=== PATIENT | female | born 1955 | race Hispanic/Latino ===

== ENCOUNTER 2021-01-28 10:45 | Inpatient (IN) | payer OTHER ==
[~2021-01-28] VITALS: Ht 149.9 cm; Wt 51.6 kg
[~2021-01-28 10:45] MED LIST: AMLO5TAB4 PO; HYDR-4154 PO; METO50TA18 PO; SIMV-43 PO
[2021-01-28 11:29] LABS: BASOPHILS % (AUTO) 0.1 % (0.0-5.0); HEMATOCRIT 23.9 % (36-48); LYMPHOCYTES % (AUTO) 3.9 % (21.0-51.0); MEAN CORPUSCULAR HEMOGLOBIN 19.1 pg (27.0-33.0); MEAN CORPUSCULAR VOLUME 68.1 fL (79-99); MONOCYTES % (AUTO) 3.6 % (3.0-13.0); PLATELET COUNT (AUTO) 264 K/uL (130-400); RED BLOOD CELL COUNT(AUTO) 3.51 MIL/uL (4.00-5.50); RED CELL DISTRIBUTION WIDTH 17.2 % (11.0-15.5); WHITE BLOOD COUNT (AUTO) 13.9 K/uL (4.8-10.8)
[2021-01-28 11:41] LABS: ALBUMIN 3.2 g/dL (3.5-5.0); POTASSIUM 4.6 mmol/L (3.5-5.1); TOTAL PROTEIN, SERUM 7.1 g/dL (6.0-8.3)
[2021-01-28 11:44] LABS: CREATININE 12.5 mg/dL (0.5-1.5)
[2021-01-28 11:51] LABS: INR 1.09 (0.85-1.15); PROTHROMBIN TIME 11.8 SEC (9.6-11.6)
[2021-01-28 11:52] LABS: PARTIAL THROMBOPLASTIN TIME 24.8 SEC (26.3-35.5)
[2021-01-28 12:00] LABS: RETICULOCYTE % (AUTO) 2.85 % (0.42-2.23)
[2021-01-28] MEDS ORDERED: AMLODIPINE BESYLATE 5 MG TAB ONE (13:35)
[2021-01-28 13:39] LABS: % IRON SATURATION 1.3 % (22-44)
[2021-01-28] MEDS ORDERED: FUROSEMIDE 10 MG/ML 4ML VIAL ONE (14:20)
[2021-01-28] MEDS ORDERED: COMPOUND IV MISC 1 EACH IVSOLN MISC PRN (14:30)
[2021-01-28] MEDS ORDERED: IRON SUCROSE COMPLEX 300 MG in SODIUM CHLORIDE 0.9% 50 ML IV SCH (14:30)
[2021-01-28] MEDS ORDERED: NICARDIPINE HCL 50 MG in SODIUM CHLORIDE 0.9% 230 ML IV SCH (14:45)
[2021-01-28 15:11] LABS: APPEARANCE,URINE Cloudy (CLEAR); BILIRUBIN,URINE Negative (NEGATIVE); COLOR,URINE Yellow (YELLOW); GLUCOSE, URINE (UA) Negative (NEGATIVE); KETONES,URINE Negative (NEGATIVE); LEUKOCYTE ESTERASE ,URINE Negative (NEGATIVE); NITRATE,URINE Negative (NEGATIVE); OCCULT BLOOD,URINE Small (NEGATIVE); PROTEIN,URINE 300 mg/dL (NEGATIVE); UROBILINOGEN,URINE 0.2 mg/dL (0.2-1.0)
[2021-01-28] MEDS ORDERED: CARVEDILOL 6.25 MG TABLET PO ONE (15:13)
[2021-01-28] MEDS: Vitamin B Complex/Vit C/Folic Acid PO SCH (15:35)
[2021-01-28 15:59] LABS: AMORPHOUS SEDIMENT,UR Moderate /LPF (None Seen); BACTERIA,URINE Few /HPF (None Seen); MUCUS,URINE Moderate LPF (None Seen); SQUAMOUS EPITHELIAL CELL,UR Few /HPF (0-2)
[2021-01-28] MEDS: CARVEDILOL 6.25 MG TABLET PO SCH (21:00)
[2021-01-28 21:14] LABS: HEMATOCRIT 19.2 % (36-48)
[2021-01-28] MEDS ORDERED: PANTOPRAZOLE SODIUM 80 MG in SODIUM CHLORIDE 0.9% 100 ML IVP SCH (22:15)
[2021-01-28 22:40] VITALS: BP 142/78
[2021-01-28 23:00] VITALS: BP 143/78
[2021-01-28] MEDS ORDERED: SODIUM CHLORIDE 0.9% 250 ML IV ONE (23:32)
[2021-01-28 23:40] VITALS: BP 131/73
[2021-01-29] VITALS (23 sets, daily range): BP systolic 119–172; BP diastolic 61–92
[2021-01-29] MEDS ORDERED: PANTOPRAZOLE 40 MG/VIAL ONE (00:50)
[2021-01-29] MEDS ORDERED: SODIUM CHLORIDE 0.9% 100 ML IV ONE (00:50)
[2021-01-29] MEDS: FUROSEMIDE 10 MG/ML 4ML VIAL IV SCH ×2 (03:05→15:13)
[2021-01-29 04:48] LABS: HEMATOCRIT 25.7 % (36-48); LYMPHOCYTES % (AUTO) 6.7 % (21.0-51.0); MEAN CORPUSCULAR HEMOGLOBIN 21.6 pg (27.0-33.0); MEAN CORPUSCULAR VOLUME 72.2 fL (79-99); NEUTROPHILS % (AUTO) 84.9 % (40.0-77.0); NUCLEATED RED BLOOD CELLS 1.4 % (0.0-0.19); PLATELET COUNT (AUTO) 162 K/uL (130-400); RED BLOOD CELL COUNT(AUTO) 3.56 MIL/uL (4.00-5.50); RED CELL DISTRIBUTION WIDTH 19.9 % (11.0-15.5); WHITE BLOOD COUNT (AUTO) 7.1 K/uL (4.8-10.8)
[2021-01-29 04:59] LABS: HEMOGLOBIN A1C 4.5 % (4.0-6.0)
[2021-01-29 05:34] LABS: ALBUMIN 2.8 g/dL (3.5-5.0); BILIRUBIN,TOTAL 1.6 mg/dL (0.2-1.0); MAGNESIUM 4.5 mg/dL (1.80-2.40); POTASSIUM 4.3 mmol/L (3.5-5.1); THYROID STIMULATING HORMONE 0.53 uIU/mL (0.36-3.74); TOTAL PROTEIN, SERUM 6.1 g/dL (6.0-8.3); URIC ACID 19.8 mg/dL (2.6-7.2)
[2021-01-29 05:43] LABS: CREATININE 12.8 mg/dL (0.5-1.5)
[2021-01-29 06:04] LABS: PHOSPHORUS 17.2 mg/dL (2.5-4.9)
[2021-01-29] MEDS: AMLODIPINE BESYLATE 5 MG TAB PO SCH (07:39)
[2021-01-29] MEDS: Vitamin B Complex/Vit C/Folic Acid PO SCH (07:39)
[2021-01-29] MEDS: CARVEDILOL 6.25 MG TABLET PO SCH ×2 (07:40→20:28)
[2021-01-29] MEDS: IRON SUCROSE COMPLEX 300 MG in SODIUM CHLORIDE 0.9% 50 ML IV SCH (15:12)
[2021-01-29] MEDS ORDERED: ACETAMINOPHEN 325 MG TAB PO SCH (15:30)
[2021-01-30] VITALS (17 sets, daily range): BP systolic 123–171; BP diastolic 70–94
[2021-01-30] MEDS: FUROSEMIDE 10 MG/ML 4ML VIAL IV SCH ×2 (03:46→15:04)
[2021-01-30 04:32] LABS: MAGNESIUM 3.4 mg/dL (1.80-2.40); PHOSPHORUS 16.2 mg/dL (2.5-4.9); POTASSIUM 4.2 mmol/L (3.5-5.1); THYROID STIMULATING HORMONE 0.48 uIU/mL (0.36-3.74); URIC ACID 20.2 mg/dL (2.6-7.2)
[2021-01-30 04:36] LABS: CREATININE 13.3 mg/dL (0.5-1.5)
[2021-01-30 05:08] LABS: BASOPHILS % (AUTO) 0.2 % (0.0-5.0); HEMATOCRIT 26.2 % (36-48); LYMPHOCYTES % (AUTO) 8.1 % (21.0-51.0); MEAN CORPUSCULAR HEMOGLOBIN 21.3 pg (27.0-33.0); MEAN CORPUSCULAR HGB CONC 29.8 g/dL (32.0-36.0); MEAN CORPUSCULAR VOLUME 71.6 fL (79-99); MONOCYTES % (AUTO) 4.8 % (3.0-13.0); NEUTROPHILS % (AUTO) 85.6 % (40.0-77.0); NUCLEATED RED BLOOD CELLS 3.6 % (0.0-0.19); PLATELET COUNT (AUTO) 184 K/uL (130-400); RED BLOOD CELL COUNT(AUTO) 3.66 MIL/uL (4.00-5.50); WHITE BLOOD COUNT (AUTO) 6.1 K/uL (4.8-10.8)
[2021-01-30] MEDS: CARVEDILOL 6.25 MG TABLET PO SCH ×2 (08:19→20:15)
[2021-01-30] MEDS: Vitamin B Complex/Vit C/Folic Acid PO SCH (08:19)
[2021-01-30] MEDS: AMLODIPINE BESYLATE 5 MG TAB PO SCH (08:20)
[2021-01-30] MEDS: PANTOPRAZOLE 40 MG/VIAL IVP SCH ×2 (10:11→20:14)
[2021-01-30] MEDS ORDERED: LIDOCAINE HCL 1% MDV 50ML VIAL ONE (13:21)
[2021-01-30] MEDS: IRON SUCROSE COMPLEX 300 MG in SODIUM CHLORIDE 0.9% 50 ML IV SCH (15:00)
[2021-01-30] MEDS ORDERED: 0.9% SODIUM CHLORIDE 1000 ML IV BAG IV PRN (16:00)
[2021-01-30] MEDS ORDERED: NITROGLYCERIN 0.4 MG SL TAB SL PRN (16:00)
[2021-01-30] MEDS ORDERED: LIDOCAINE HCL-MPF 1% 2ML VIAL IJ PRN (16:00)
[2021-01-30] MEDS ORDERED: SODIUM CHLORIDE 0.9% 1000ML 1,000 ML IV PRN (16:00)
[2021-01-30] MEDS ORDERED: HEPARIN SODIUM 5000UNIT/ML 1ML VIAL IJ PRN (16:00)
[2021-01-30] MEDS ORDERED: ALBUMIN FOR BP SUPPORT MISC PRN (16:00)
[2021-01-30] MEDS ORDERED: ACETAMINOPHEN 325 MG TAB PO PRN (16:00)
[2021-01-30 16:46] LABS: HEMATOCRIT 27.9 % (36-48)
[2021-01-30 16:56] LABS: HEMOGLOBIN A1C 4.6 % (4.0-6.0)
[2021-01-30 17:04] LABS: % IRON SATURATION 14.7 % (22-44)
[2021-01-30 17:43] LABS: ALBUMIN 3.1 g/dL (3.5-5.0)
[2021-01-30 17:48] LABS: CREATININE 10.1 mg/dL (0.5-1.5)
[2021-01-30] MEDS ORDERED: IRON SUCROSE COMPLEX 300 MG in SODIUM CHLORIDE 0.9% 50 ML IV SCH (18:30)
[2021-01-31 00:07] VITALS: BP 152/79
[2021-01-31] MEDS: FUROSEMIDE 10 MG/ML 4ML VIAL IV SCH ×2 (03:24→15:40)
[2021-01-31 04:00] VITALS: BP 175/85
[2021-01-31 08:09] LABS: BASOPHILS % (AUTO) 0.1 % (0.0-5.0); EOSINOPHILS % (AUTO) 0.1 % (0.0-8.0); HEMATOCRIT 26.3 % (36-48); LYMPHOCYTES % (AUTO) 6.1 % (21.0-51.0); MEAN CORPUSCULAR HEMOGLOBIN 21.9 pg (27.0-33.0); MEAN CORPUSCULAR HGB CONC 30.4 g/dL (32.0-36.0); MEAN CORPUSCULAR VOLUME 71.9 fL (79-99); MONOCYTES % (AUTO) 5.1 % (3.0-13.0); NEUTROPHILS % (AUTO) 86.5 % (40.0-77.0); NUCLEATED RED BLOOD CELLS 1.9 % (0.0-0.19); PLATELET COUNT (AUTO) 164 K/uL (130-400); RED BLOOD CELL COUNT(AUTO) 3.66 MIL/uL (4.00-5.50); RED CELL DISTRIBUTION WIDTH 19.9 % (11.0-15.5); WHITE BLOOD COUNT (AUTO) 7.3 K/uL (4.8-10.8)
[2021-01-31 08:14] LABS: ALBUMIN 2.5 g/dL (3.5-5.0); BILIRUBIN,TOTAL 0.9 mg/dL (0.2-1.0); POTASSIUM 3.6 mmol/L (3.5-5.1); TOTAL PROTEIN, SERUM 5.8 g/dL (6.0-8.3)
[2021-01-31 08:18] LABS: CREATININE 10.5 mg/dL (0.5-1.5)
[2021-01-31 12:02] VITALS: BP 146/88
[2021-01-31] MEDS: PANTOPRAZOLE 40 MG/VIAL IVP SCH ×2 (13:23→21:31)
[2021-01-31] MEDS: AMLODIPINE BESYLATE 5 MG TAB PO SCH (13:24)
[2021-01-31] MEDS: Vitamin B Complex/Vit C/Folic Acid PO SCH (13:24)
[2021-01-31] MEDS: CARVEDILOL 6.25 MG TABLET PO SCH ×2 (13:24→21:31)
[2021-01-31] MEDS: HEPARIN SODIUM 5000UNIT/ML 1ML VIAL IJ PRN (13:35)
[2021-01-31 15:41] VITALS: BP 154/67
[2021-01-31 16:11] VITALS: BP 139/73
[2021-01-31 19:00] VITALS: BP 167/83
[2021-02-01] VITALS: BP 163/83
[2021-02-01] MEDS: FUROSEMIDE 10 MG/ML 4ML VIAL IV SCH ×2 (02:28→14:12)
[2021-02-01 04:00] VITALS: BP 179/87
[2021-02-01 04:27] LABS: HEMATOCRIT 26.5 % (36-48); LYMPHOCYTES % (AUTO) 5.4 % (21.0-51.0); MEAN CORPUSCULAR HEMOGLOBIN 22.1 pg (27.0-33.0); MEAN CORPUSCULAR HGB CONC 30.2 g/dL (32.0-36.0); MEAN CORPUSCULAR VOLUME 73.2 fL (79-99); MONOCYTES % (AUTO) 6.8 % (3.0-13.0); NEUTROPHILS % (AUTO) 86.2 % (40.0-77.0); NUCLEATED RED BLOOD CELLS 0.9 % (0.0-0.19); PLATELET COUNT (AUTO) 127 K/uL (130-400); RED BLOOD CELL COUNT(AUTO) 3.62 MIL/uL (4.00-5.50); RED CELL DISTRIBUTION WIDTH 21.2 % (11.0-15.5); WHITE BLOOD COUNT (AUTO) 6.4 K/uL (4.8-10.8)
[2021-02-01 04:38] LABS: CREATININE 6.4 mg/dL (0.5-1.5); PHOSPHORUS 7.7 mg/dL (2.5-4.9); POTASSIUM 3.3 mmol/L (3.5-5.1)
[2021-02-01 08:00] VITALS: BP 154/77
[2021-02-01 12:00] VITALS: BP 175/86
[2021-02-01] MEDS: PANTOPRAZOLE 40 MG/VIAL IVP SCH ×2 (12:00→21:05)
[2021-02-01] MEDS: Vitamin B Complex/Vit C/Folic Acid PO SCH (12:00)
[2021-02-01] MEDS: AMLODIPINE BESYLATE 5 MG TAB PO SCH (12:00)
[2021-02-01] MEDS: CARVEDILOL 6.25 MG TABLET PO SCH ×2 (12:00→21:04)
[2021-02-01 16:04] VITALS: BP 143/77
[2021-02-01 16:09] LABS: HEPATITIS Bs ANTIGEN SCREEN P Negative (Negative)
[2021-02-01 19:00] VITALS: BP 154/82
[2021-02-02] VITALS (9 sets, daily range): BP systolic 108–195; BP diastolic 72–98
[2021-02-02] MEDS: FUROSEMIDE 10 MG/ML 4ML VIAL IV SCH ×2 (03:24→15:08)
[2021-02-02 04:10] LABS: BASOPHILS % (AUTO) 0.1 % (0.0-5.0); EOSINOPHILS % (AUTO) 0.1 % (0.0-8.0); LYMPHOCYTES % (AUTO) 5.2 % (21.0-51.0); MEAN CORPUSCULAR HEMOGLOBIN 22.1 pg (27.0-33.0); MEAN CORPUSCULAR HGB CONC 28.7 g/dL (32.0-36.0); MEAN CORPUSCULAR VOLUME 77.1 fL (79-99); MONOCYTES % (AUTO) 7.5 % (3.0-13.0); NEUTROPHILS % (AUTO) 86.1 % (40.0-77.0); PLATELET COUNT (AUTO) 118 K/uL (130-400); RED BLOOD CELL COUNT(AUTO) 3.89 MIL/uL (4.00-5.50); RED CELL DISTRIBUTION WIDTH 22.8 % (11.0-15.5); WHITE BLOOD COUNT (AUTO) 8.6 K/uL (4.8-10.8)
[2021-02-02 04:37] LABS: ALBUMIN 2.3 g/dL (3.5-5.0); BILIRUBIN,TOTAL 0.8 mg/dL (0.2-1.0); POTASSIUM 3.7 mmol/L (3.5-5.1); TOTAL PROTEIN, SERUM 5.5 g/dL (6.0-8.3)
[2021-02-02 04:51] LABS: CREATININE 7.9 mg/dL (0.5-1.5)
[2021-02-02] MEDS: Vitamin B Complex/Vit C/Folic Acid PO SCH (08:11)
[2021-02-02] MEDS: PANTOPRAZOLE 40 MG/VIAL IVP SCH ×2 (08:11→21:14)
[2021-02-02] MEDS: AMLODIPINE BESYLATE 5 MG TAB PO SCH (08:12)
[2021-02-02] MEDS: CARVEDILOL 6.25 MG TABLET PO SCH ×2 (10:40→21:14)
[2021-02-02] MEDS ORDERED: EPOETIN ALFA-EPBX (ESRD) 10,000 UNIT/ML VIAL SQ PRN (16:00)
[2021-02-03] VITALS (24 sets, daily range): BP systolic 149–206; BP diastolic 75–101
[2021-02-03] MEDS: FUROSEMIDE 10 MG/ML 4ML VIAL IV SCH ×2 (02:16→14:45)
[2021-02-03 05:00] LABS: BASOPHILS % (AUTO) 0.1 % (0.0-5.0); EOSINOPHILS % (AUTO) 0.8 % (0.0-8.0); HEMATOCRIT 29.4 % (36-48); LYMPHOCYTES % (AUTO) 5.2 % (21.0-51.0); MEAN CORPUSCULAR HEMOGLOBIN 22.5 pg (27.0-33.0); MEAN CORPUSCULAR HGB CONC 28.9 g/dL (32.0-36.0); MEAN CORPUSCULAR VOLUME 77.8 fL (79-99); MONOCYTES % (AUTO) 7.4 % (3.0-13.0); NEUTROPHILS % (AUTO) 85.7 % (40.0-77.0); PLATELET COUNT (AUTO) 102 K/uL (130-400); RED BLOOD CELL COUNT(AUTO) 3.78 MIL/uL (4.00-5.50); RED CELL DISTRIBUTION WIDTH 23.9 % (11.0-15.5); WHITE BLOOD COUNT (AUTO) 8.5 K/uL (4.8-10.8)
[2021-02-03 05:27] LABS: ALBUMIN 2.2 g/dL (3.5-5.0); BILIRUBIN,TOTAL 0.8 mg/dL (0.2-1.0); CREATININE 4.4 mg/dL (0.5-1.5); POTASSIUM 3.6 mmol/L (3.5-5.1); TOTAL PROTEIN, SERUM 5.5 g/dL (6.0-8.3)
[2021-02-03] MEDS: Vitamin B Complex/Vit C/Folic Acid PO SCH (08:34)
[2021-02-03] MEDS: PANTOPRAZOLE 40 MG/VIAL IVP SCH (08:34)
[2021-02-03] MEDS: ASPIRIN 81MG TAB.CHEW PO SCH (08:34)
[2021-02-03] MEDS: CARVEDILOL 6.25 MG TABLET PO SCH ×2 (08:35→21:17)
[2021-02-03] MEDS: AMLODIPINE BESYLATE 5 MG TAB PO SCH (08:35)
[2021-02-03] MEDS: PANTOPRAZOLE SODIUM 40 MG TABLET.DR PO SCH (21:16)
[2021-02-04] VITALS (15 sets, daily range): BP systolic 160–212; BP diastolic 81–101
[2021-02-04] MEDS: FUROSEMIDE 10 MG/ML 4ML VIAL IV SCH ×2 (03:20→15:00)
[2021-02-04 03:41] LABS: BASOPHILS % (AUTO) 0.1 % (0.0-5.0); LYMPHOCYTES % (AUTO) 5.1 % (21.0-51.0); MEAN CORPUSCULAR HEMOGLOBIN 22.9 pg (27.0-33.0); MEAN CORPUSCULAR VOLUME 78.9 fL (79-99); MONOCYTES % (AUTO) 9.3 % (3.0-13.0); NEUTROPHILS % (AUTO) 81.6 % (40.0-77.0); PLATELET COUNT (AUTO) 83 K/uL (130-400); RED CELL DISTRIBUTION WIDTH 23.9 % (11.0-15.5); WHITE BLOOD COUNT (AUTO) 7.4 K/uL (4.8-10.8)
[2021-02-04 03:58] LABS: ALBUMIN 2.3 g/dL (3.5-5.0); BILIRUBIN,TOTAL 0.6 mg/dL (0.2-1.0); CREATININE 5.7 mg/dL (0.5-1.5); POTASSIUM 3.8 mmol/L (3.5-5.1); TOTAL PROTEIN, SERUM 5.6 g/dL (6.0-8.3)
[2021-02-04] MEDS: PANTOPRAZOLE SODIUM 40 MG TABLET.DR PO SCH ×2 (08:24→20:27)
[2021-02-04] MEDS: ASPIRIN 81MG TAB.CHEW PO SCH (08:24)
[2021-02-04] MEDS: Vitamin B Complex/Vit C/Folic Acid PO SCH (08:25)
[2021-02-04] MEDS: CLOPIDOGREL BISULFATE 75 MG TAB PO SCH (08:25)
[2021-02-04] MEDS ORDERED: PHARMACY COMMUNICATION MISC SCH (14:30)
[2021-02-04] MEDS: CARVEDILOL 6.25 MG TABLET PO SCH (20:32)
[2021-02-04] MEDS ORDERED: LACTULOSE 20 GM/30 ML UDCUP PO PRN (23:30)
[2021-02-05] MEDS: FUROSEMIDE 10 MG/ML 4ML VIAL IV SCH (03:26)
[2021-02-05 03:48] VITALS: BP 183/93
[2021-02-05] MEDS ORDERED: DIPHENHYDRAMINE HCL 25 MG CAPSULE PO PRN (04:15)
[2021-02-05] MEDS ORDERED: DIPHENHYDRAMINE HCL 25 MG CAPSULE ONE (04:19)
[2021-02-05 06:53] LABS: BASOPHILS % (AUTO) 0.2 % (0.0-5.0); EOSINOPHILS % (AUTO) 2.8 % (0.0-8.0); HEMATOCRIT 30.6 % (36-48); LYMPHOCYTES % (AUTO) 4.8 % (21.0-51.0); MEAN CORPUSCULAR HEMOGLOBIN 22.8 pg (27.0-33.0); MEAN CORPUSCULAR HGB CONC 28.4 g/dL (32.0-36.0); MEAN CORPUSCULAR VOLUME 80.1 fL (79-99); MONOCYTES % (AUTO) 8.7 % (3.0-13.0); NEUTROPHILS % (AUTO) 82.7 % (40.0-77.0); PLATELET COUNT (AUTO) 74 K/uL (130-400); RED BLOOD CELL COUNT(AUTO) 3.82 MIL/uL (4.00-5.50); RED CELL DISTRIBUTION WIDTH 24.5 % (11.0-15.5); WHITE BLOOD COUNT (AUTO) 6.4 K/uL (4.8-10.8)
[2021-02-05 07:05] LABS: CREATININE 4.3 mg/dL (0.5-1.5); POTASSIUM 3.7 mmol/L (3.5-5.1)
[2021-02-05 08:13] VITALS: BP 169/80
[2021-02-05] MEDS: ASPIRIN 81MG TAB.CHEW PO SCH (09:00)
[2021-02-05] MEDS: CLOPIDOGREL BISULFATE 75 MG TAB PO SCH (09:00)
[2021-02-05] MEDS: AMLODIPINE BESYLATE 5 MG TAB PO SCH (09:50)
[2021-02-05] MEDS: PANTOPRAZOLE SODIUM 40 MG TABLET.DR PO SCH ×2 (09:50→20:42)
[2021-02-05] MEDS: Vitamin B Complex/Vit C/Folic Acid PO SCH (09:50)
[2021-02-05] MEDS: PREDNISONE 20 MG TABLET PO SCH (09:51)
[2021-02-05] MEDS: CARVEDILOL 6.25 MG TABLET PO SCH ×2 (09:54→20:42)
[2021-02-05 12:00] VITALS: BP 155/80
[2021-02-05 13:38] LABS: % IRON SATURATION 14.3 % (22-44)
[2021-02-05 16:00] VITALS: BP 160/78
[2021-02-05 20:00] VITALS: BP 177/91
[2021-02-05] MEDS: LABETALOL 20 MG/4 ML DISP.SYRIN IV PRN (23:42)
[2021-02-06] VITALS: BP 187/92
[2021-02-06 04:00] VITALS: BP 184/86
[2021-02-06 05:45] LABS: CREATININE 5.7 mg/dL (0.5-1.5); POTASSIUM 4.3 mmol/L (3.5-5.1)
[2021-02-06 08:38] LABS: BASOPHILS % (AUTO) 0.2 % (0.0-5.0); HEMATOCRIT 26.9 % (36-48); LYMPHOCYTES % (AUTO) 7.2 % (21.0-51.0); MEAN CORPUSCULAR HEMOGLOBIN 23.4 pg (27.0-33.0); MEAN CORPUSCULAR HGB CONC 29.4 g/dL (32.0-36.0); MEAN CORPUSCULAR VOLUME 79.6 fL (79-99); PLATELET COUNT (AUTO) 68 K/uL (130-400); RED BLOOD CELL COUNT(AUTO) 3.38 MIL/uL (4.00-5.50); RED CELL DISTRIBUTION WIDTH 23.9 % (11.0-15.5); WHITE BLOOD COUNT (AUTO) 4.9 K/uL (4.8-10.8)
[2021-02-06 09:34] LABS: PLATELET MORPHOLOGY COMMENT DECREASED
[2021-02-06] MEDS: HEPARIN SODIUM 5000UNIT/ML 1ML VIAL IJ PRN (09:57)
[2021-02-06] MEDS: PANTOPRAZOLE SODIUM 40 MG TABLET.DR PO SCH ×2 (11:05→21:20)
[2021-02-06] MEDS: PREDNISONE 20 MG TABLET PO SCH (11:06)
[2021-02-06] MEDS: ALLOPURINOL 100 MG TABLET PO SCH (11:07)
[2021-02-06] MEDS: CARVEDILOL 6.25 MG TABLET PO SCH ×2 (11:07→21:20)
[2021-02-06] MEDS: ASPIRIN 81MG TAB.CHEW PO SCH (11:07)
[2021-02-06] MEDS: Vitamin B Complex/Vit C/Folic Acid PO SCH (11:07)
[2021-02-06] MEDS: AMLODIPINE BESYLATE 5 MG TAB PO SCH (11:08)
[2021-02-06 11:47] VITALS: BP 159/73
[2021-02-06] MEDS: RISPERIDONE 1 MG TABLET PO SCH ×2 (16:15→21:23)
[2021-02-06 16:42] VITALS: BP 162/76
[2021-02-06 20:00] VITALS: BP 175/85
[2021-02-07] VITALS (7 sets, daily range): BP systolic 135–194; BP diastolic 73–86
[2021-02-07 05:59] LABS: CREATININE 4.5 mg/dL (0.5-1.5)
[2021-02-07] MEDS: RISPERIDONE 1 MG TABLET PO SCH ×3 (10:28→20:37)
[2021-02-07] MEDS: AMLODIPINE BESYLATE 5 MG TAB PO SCH (10:28)
[2021-02-07] MEDS: Vitamin B Complex/Vit C/Folic Acid PO SCH (10:29)
[2021-02-07] MEDS: ALLOPURINOL 100 MG TABLET PO SCH (10:29)
[2021-02-07] MEDS: ASPIRIN 81MG TAB.CHEW PO SCH (10:29)
[2021-02-07] MEDS: PREDNISONE 20 MG TABLET PO SCH (10:30)
[2021-02-07] MEDS: PANTOPRAZOLE SODIUM 40 MG TABLET.DR PO SCH ×2 (10:30→20:38)
[2021-02-07] MEDS: CARVEDILOL 6.25 MG TABLET PO SCH ×2 (10:31→20:36)
[2021-02-08] MEDS ORDERED: LABETALOL 20 MG/4 ML DISP.SYRIN IV PRN (01:15)
[2021-02-08] MEDS: LABETALOL 20 MG/4 ML DISP.SYRIN IV PRN (02:08)
[2021-02-08 04:00] VITALS: BP 209/96
[2021-02-08 06:01] LABS: BASOPHILS % (AUTO) 0.3 % (0.0-5.0); EOSINOPHILS % (AUTO) 0.8 % (0.0-8.0); HEMATOCRIT 25.3 % (36-48); LYMPHOCYTES % (AUTO) 10.2 % (21.0-51.0); MEAN CORPUSCULAR HGB CONC 28.9 g/dL (32.0-36.0); MEAN CORPUSCULAR VOLUME 79.8 fL (79-99); MONOCYTES % (AUTO) 7.7 % (3.0-13.0); NEUTROPHILS % (AUTO) 80.2 % (40.0-77.0); PLATELET COUNT (AUTO) 95 K/uL (130-400); RED BLOOD CELL COUNT(AUTO) 3.17 MIL/uL (4.00-5.50); RED CELL DISTRIBUTION WIDTH 23.6 % (11.0-15.5); WHITE BLOOD COUNT (AUTO) 3.6 K/uL (4.8-10.8)
[2021-02-08 06:10] LABS: ALBUMIN 2.3 g/dL (3.5-5.0); BILIRUBIN,TOTAL 0.5 mg/dL (0.2-1.0); CREATININE 5.9 mg/dL (0.5-1.5); TOTAL PROTEIN, SERUM 5.1 g/dL (6.0-8.3)
[2021-02-08 07:59] VITALS: BP 148/71
[2021-02-08] MEDS: RISPERIDONE 1 MG TABLET PO SCH ×2 (09:58→10:01)
[2021-02-08] MEDS: Vitamin B Complex/Vit C/Folic Acid PO SCH (10:02)
[2021-02-08] MEDS: ALLOPURINOL 100 MG TABLET PO SCH (10:02)
[2021-02-08] MEDS: PANTOPRAZOLE SODIUM 40 MG TABLET.DR PO SCH ×2 (10:02→22:18)
[2021-02-08] MEDS: PREDNISONE 20 MG TABLET PO SCH (10:02)
[2021-02-08] MEDS: ASPIRIN 81MG TAB.CHEW PO SCH (10:02)
[2021-02-08] MEDS: AMLODIPINE BESYLATE 5 MG TAB PO SCH (10:03)
[2021-02-08] MEDS: CARVEDILOL 25 MG TABLET PO SCH ×2 (10:03→22:17)
[2021-02-08 11:43] VITALS: BP 152/101
[2021-02-08 16:31] VITALS: BP 129/72
[2021-02-08 19:35] VITALS: BP 170/76
[2021-02-08 23:25] VITALS: BP 162/81
[2021-02-09 03:30] VITALS: BP 198/84
[2021-02-09 05:20] LABS: EOSINOPHILS % (AUTO) 0.3 % (0.0-8.0); HEMATOCRIT 26.6 % (36-48); LYMPHOCYTES % (AUTO) 10.1 % (21.0-51.0); MEAN CORPUSCULAR HGB CONC 28.6 g/dL (32.0-36.0); MEAN CORPUSCULAR VOLUME 80.6 fL (79-99); MONOCYTES % (AUTO) 5.3 % (3.0-13.0); NEUTROPHILS % (AUTO) 83.5 % (40.0-77.0); PLATELET COUNT (AUTO) 112 K/uL (130-400); RED CELL DISTRIBUTION WIDTH 23.7 % (11.0-15.5); WHITE BLOOD COUNT (AUTO) 3.6 K/uL (4.8-10.8)
[2021-02-09 05:55] LABS: ALBUMIN 2.4 g/dL (3.5-5.0); BILIRUBIN,TOTAL 0.4 mg/dL (0.2-1.0); CREATININE 6.9 mg/dL (0.5-1.5); POTASSIUM 4.6 mmol/L (3.5-5.1); TOTAL PROTEIN, SERUM 5.5 g/dL (6.0-8.3)
[2021-02-09 07:57] VITALS: BP 194/83
[2021-02-09 11:30] VITALS: BP 156/96
[2021-02-09] MEDS: ASPIRIN 81MG TAB.CHEW PO SCH (15:00)
[2021-02-09] MEDS: Vitamin B Complex/Vit C/Folic Acid PO SCH (15:01)
[2021-02-09] MEDS: CARVEDILOL 25 MG TABLET PO SCH ×2 (15:01→21:54)
[2021-02-09] MEDS: PREDNISONE 20 MG TABLET PO SCH (15:01)
[2021-02-09] MEDS: AMLODIPINE BESYLATE 5 MG TAB PO SCH (15:02)
[2021-02-09] MEDS: ALLOPURINOL 100 MG TABLET PO SCH (15:02)
[2021-02-09] MEDS: PANTOPRAZOLE SODIUM 40 MG TABLET.DR PO SCH ×2 (15:02→21:53)
[2021-02-09 16:00] VITALS: BP 172/79
[2021-02-09] MEDS: RISPERIDONE 1 MG TABLET PO SCH ×2 (17:27→21:53)
[2021-02-09 20:00] VITALS: BP 164/81
[2021-02-10] VITALS (8 sets, daily range): BP systolic 117–179; BP diastolic 53–81
[2021-02-10 04:51] LABS: BASOPHILS % (AUTO) 0.3 % (0.0-5.0); EOSINOPHILS % (AUTO) 0.8 % (0.0-8.0); HEMATOCRIT 25.3 % (36-48); LYMPHOCYTES % (AUTO) 6.1 % (21.0-51.0); MEAN CORPUSCULAR HEMOGLOBIN 23.7 pg (27.0-33.0); MEAN CORPUSCULAR HGB CONC 29.6 g/dL (32.0-36.0); MEAN CORPUSCULAR VOLUME 79.8 fL (79-99); MONOCYTES % (AUTO) 4.1 % (3.0-13.0); NEUTROPHILS % (AUTO) 87.9 % (40.0-77.0); PLATELET COUNT (AUTO) 117 K/uL (130-400); RED BLOOD CELL COUNT(AUTO) 3.17 MIL/uL (4.00-5.50); RED CELL DISTRIBUTION WIDTH 23.7 % (11.0-15.5); WHITE BLOOD COUNT (AUTO) 3.9 K/uL (4.8-10.8)
[2021-02-10 05:06] LABS: ALBUMIN 2.5 g/dL (3.5-5.0); BILIRUBIN,TOTAL 0.5 mg/dL (0.2-1.0); CREATININE 4.2 mg/dL (0.5-1.5); PHOSPHORUS 5.5 mg/dL (2.5-4.9); TOTAL PROTEIN, SERUM 5.4 g/dL (6.0-8.3)
[2021-02-10] MEDS: CARVEDILOL 25 MG TABLET PO SCH ×2 (09:18→19:36)
[2021-02-10] MEDS: ASPIRIN 81MG TAB.CHEW PO SCH (09:18)
[2021-02-10] MEDS: PREDNISONE 20 MG TABLET PO SCH (09:19)
[2021-02-10] MEDS: AMLODIPINE BESYLATE 5 MG TAB PO SCH (09:20)
[2021-02-10] MEDS: Vitamin B Complex/Vit C/Folic Acid PO SCH (09:20)
[2021-02-10] MEDS: PANTOPRAZOLE SODIUM 40 MG TABLET.DR PO SCH ×2 (09:20→19:36)
[2021-02-10] MEDS: ALLOPURINOL 100 MG TABLET PO SCH (09:21)
[2021-02-10] MEDS: RISPERIDONE 1 MG TABLET PO SCH ×2 (15:04→19:39)
[2021-02-10] MEDS ORDERED: RISP0.5T61 PO (15:39)
[2021-02-10] MEDS ORDERED: ATOR40TA69 PO (20:10)
[2021-02-10] MEDS ORDERED: AMLO-258 PO (20:10)
[2021-02-10] MEDS ORDERED: FOLI1TAB61 PO (20:10)
[2021-02-10] MEDS ORDERED: CARV25TA77 PO (20:10)
[2021-02-10] MEDS ORDERED: ASPI-1012 PO (20:10)
[2021-02-10] MEDS ORDERED: PRED20TA3 PO (20:10)
[2021-02-10] MEDS ORDERED: PANT20TA PO (20:10)
== END 2021-02-10 20:20 | disposition home or self-care (01) | DRG 291 ==
LOC: EDH 10:45 → EDHIP 10:46 → 2DH 22:19 → 4AH 01-30 11:53 → 2DH 02-02 19:55 → 4CH 02-04 14:43 → 4BH 02-06 17:58
PROVIDERS: ADMIT Internal Medicine; ATTEND Internal Medicine
PROC: 30233N1 Transfusion of Nonautologous Red Blood Cells into Peripheral Vein, Percutaneous Approach (ICD-10-PCS; 2021-01-28)
PROC: 5A1D70Z Performance of Urinary Filtration, Intermittent, Less than 6 Hours Per Day (ICD-10-PCS; 2021-01-30)
PROC: 05HY33Z Insertion of Infusion Device into Upper Vein, Percutaneous Approach (ICD-10-PCS; 2021-01-30)
PROC: 5A1D70Z Performance of Urinary Filtration, Intermittent, Less than 6 Hours Per Day (ICD-10-PCS; 2021-01-31)
PROC: 5A1D70Z Performance of Urinary Filtration, Intermittent, Less than 6 Hours Per Day (ICD-10-PCS; 2021-02-02)
PROC: 5A1D70Z Performance of Urinary Filtration, Intermittent, Less than 6 Hours Per Day (ICD-10-PCS; 2021-02-04)
PROC: 5A1D70Z Performance of Urinary Filtration, Intermittent, Less than 6 Hours Per Day (ICD-10-PCS; 2021-02-06)
PROC: 5A1D70Z Performance of Urinary Filtration, Intermittent, Less than 6 Hours Per Day (ICD-10-PCS; 2021-02-09)
PROC: 5A1D70Z Performance of Urinary Filtration, Intermittent, Less than 6 Hours Per Day (ICD-10-PCS; principal; 2021-02-10)
DX: I13.2 Hypertensive heart and chronic kidney disease with heart failure and with stage 5 chronic kidney disease, or end stage renal disease (principal); N18.6 End stage renal disease; I50.31 Acute diastolic (congestive) heart failure; G93.41 Metabolic encephalopathy; I63.9 Cerebral infarction, unspecified; E87.1 Hypo-osmolality and hyponatremia; N17.9 Acute kidney failure, unspecified; G81.90 Hemiplegia, unspecified affecting unspecified side; R47.01 Aphasia; I12.0 Hypertensive chronic kidney disease with stage 5 chronic kidney disease or end stage renal disease; I16.0 Hypertensive urgency; D50.9 Iron deficiency anemia, unspecified; E87.70 Fluid overload, unspecified; I50.9 Heart failure, unspecified; D72.810 Lymphocytopenia; D63.1 Anemia in chronic kidney disease; E11.22 Type 2 diabetes mellitus with diabetic chronic kidney disease; E78.5 Hyperlipidemia, unspecified; E83.39 Other disorders of phosphorus metabolism; F03.90 Unspecified dementia, unspecified severity, without behavioral disturbance, psychotic disturbance, mood disturbance, and anxiety; F32.9 Major depressive disorder, single episode, unspecified; D69.6 Thrombocytopenia, unspecified; E79.0 Hyperuricemia without signs of inflammatory arthritis and tophaceous disease; I66.22 Occlusion and stenosis of left posterior cerebral artery; Z20.822 Contact with and (suspected) exposure to COVID-19; Z79.02 Long term (current) use of antithrombotics/antiplatelets; Z79.82 Long term (current) use of aspirin; Z80.3 Family history of malignant neoplasm of breast; Z80.49 Family history of malignant neoplasm of other genital organs; Z82.49 Family history of ischemic heart disease and other diseases of the circulatory system; Z83.3 Family history of diabetes mellitus; Z86.73 Personal history of transient ischemic attack (TIA), and cerebral infarction without residual deficits; Z91.19 Patient's noncompliance with other medical treatment and regimen; Z99.2 Dependence on renal dialysis
CPT/HCPCS: 36415; 36558; 70450; 70544; 70551; 71045; 74176; 76770; 77001; 80048; 80053; 80061; 81001; 82040; 82140; 82270; 82565; 82607; 82728; 82746; 82948; 83036; 83540; 83550; 83735; 83880; 84100; 84443; 84484; 84520; 84550; 85014; 85018; 85025; 85045; 85610; 85730; 86701; 86704; 86706; 86850; 86900; 86901; 86923; 87340; 87390; 87520; 90935; 92507; 92522; 92610; 93005; 93306; 93356; 93880; 93930; 93970; 97039; C1750; C9113; G0378; J1644; J1756; J1940; J3490; J7050; P9016; Q0163; U0003

== ENCOUNTER 2021-05-28 21:43 | Observation (INO) | payer MEDICARE, OTHER ==
[~2021-05-28] VITALS: Ht 180.3 cm; Wt 48.7 kg
[~2021-05-28 21:43] MED LIST changes: +AMLO-258 PO; -AMLO5TAB4 PO; +ASPI-1012 PO; +ATOR40TA69 PO; +CARV25TA77 PO; +FOLI1TAB61 PO; -HYDR-4154 PO; -METO50TA18 PO; +PANT20TA PO; +PRED20TA3 PO; +RISP0.5T61 PO; -SIMV-43 PO
[2021-05-28 22:32] VITALS: BP 168/75
[2021-05-28] MEDS ORDERED: NAPR-1180 PO (22:37)
[2021-05-28] MEDS ORDERED: CYCL10 PO (22:37)
[2021-05-28 23:04] LABS: BASOPHILS % (AUTO) 0.7 % (0.0-5.0); EOSINOPHILS % (AUTO) 0.2 % (0.0-8.0); HEMATOCRIT 35.4 % (36-48); LYMPHOCYTES % (AUTO) 14.2 % (21.0-51.0); MEAN CORPUSCULAR HEMOGLOBIN 29.6 pg (27.0-33.0); MEAN CORPUSCULAR HGB CONC 31.6 g/dL (32.0-36.0); MEAN CORPUSCULAR VOLUME 93.4 fL (79-99); MONOCYTES % (AUTO) 9.9 % (3.0-13.0); NUCLEATED RED BLOOD CELLS 0.4 % (0.0-0.19); PLATELET COUNT (AUTO) 114 K/uL (130-400); RED BLOOD CELL COUNT(AUTO) 3.79 MIL/uL (4.00-5.50); RED CELL DISTRIBUTION WIDTH 14.8 % (11.0-15.5); WHITE BLOOD COUNT (AUTO) 5.6 K/uL (4.8-10.8)
[2021-05-28 23:10] LABS: CREATININE 3.2 mg/dL (0.5-1.5); POTASSIUM 3.6 mmol/L (3.5-5.1)
[2021-05-28 23:14] LABS: ALBUMIN 3.1 g/dL (3.5-5.0); BILIRUBIN,TOTAL 0.3 mg/dL (0.2-1.0); TOTAL PROTEIN, SERUM 6.8 g/dL (6.0-8.3)
[2021-05-29] VITALS (9 sets, daily range): BP systolic 137–161; BP diastolic 58–73
[2021-05-29] MEDS ORDERED: MORPHINE 2 MG SYG IV PRN (02:00)
[2021-05-29] MEDS ORDERED: NITROGLYCERIN 0.4 MG SL TAB SL PRN (02:00)
[2021-05-29] MEDS ORDERED: LOSA50TA64 PO (02:17)
[2021-05-29] MEDS ORDERED: FOLI1TAB85 PO (02:17)
[2021-05-29] MEDS ORDERED: AMLO-258 PO (02:17)
[2021-05-29] MEDS ORDERED: LACT10SO76 PO (02:17)
[2021-05-29] MEDS ORDERED: RISP0.5T66 PO (02:17)
[2021-05-29] MEDS ORDERED: VITA200C75 PO (02:17)
[2021-05-29] MEDS ORDERED: MELA10CA2 PO (02:17)
[2021-05-29] MEDS ORDERED: PRED10TA3 PO (02:17)
[2021-05-29] MEDS ORDERED: ASPI-1012 PO (02:17)
[2021-05-29] MEDS ORDERED: CARV25TA PO (02:17)
[2021-05-29] MEDS ORDERED: ATOR40TA71 PO (02:17)
[2021-05-29] MEDS ORDERED: CHOL100046 PO (02:17)
[2021-05-29] MEDS ORDERED: LACTULOSE 20 GM/30 ML UDCUP PO PRN (02:30)
[2021-05-29] MEDS ORDERED: ***HM***(Melatonin 10 MG) PO PRN (02:30)
[2021-05-29 07:02] LABS: INR 1.05 (0.85-1.15); PROTHROMBIN TIME 11.4 SEC (9.6-11.6)
[2021-05-29 07:17] LABS: TROPONIN I 0.06 ng/mL (0.00-0.06)
[2021-05-29] MEDS ORDERED: ESOM20CA39 PO (08:51)
[2021-05-29] MEDS ORDERED: FAMOTIDINE 20MG VIAL IV SCH (09:00)
[2021-05-29] MEDS ORDERED: CHOLECALCIFEROL 25 MCG PO SCH (09:00)
[2021-05-29] MEDS ORDERED: LOSARTAN 50 MG TABLET PO SCH (09:00)
[2021-05-29] MEDS ORDERED: ASPIRIN 325 MG TABLET PO SCH (09:00)
[2021-05-29] MEDS ORDERED: CARVEDILOL 25 MG TABLET PO SCH (09:00)
[2021-05-29] MEDS ORDERED: AMLODIPINE 5 MG TAB PO SCH (09:00)
[2021-05-29] MEDS ORDERED: Vitamin B Complex/Vit C/Folic Acid PO SCH (09:00)
[2021-05-29] MEDS ORDERED: HEPARIN 5,000 UNIT VIAL SQ SCH (09:00)
[2021-05-29] MEDS ORDERED: ATORVASTATIN 40 MG TABLET PO SCH (09:00)
[2021-05-29] MEDS ORDERED: ONDANSETRON 4MG INJ IVP PRN (14:30)
[2021-05-29] MEDS ORDERED: HEPARIN 5,000 UNIT VIAL IJ PRN (16:45)
[2021-05-29] MEDS ORDERED: RISPERIDONE 0.5 MG TABLET PO SCH (21:00)
[2021-06-02 02:07] LABS: HEPATITIS Bs ANTIGEN SCREEN P Negative (Negative)
== END 2021-05-29 19:15 | disposition home or self-care (01) ==
LOC: EDH 21:43 → EDHIP 05-29 01:48 → 3CH 05-29 08:41
PROVIDERS: ADMIT Internal Medicine; ATTEND Internal Medicine
DX: R94.31 Abnormal electrocardiogram [ECG] [EKG] (principal); I12.0 Hypertensive chronic kidney disease with stage 5 chronic kidney disease or end stage renal disease; N18.6 End stage renal disease; E10.40 Type 1 diabetes mellitus with diabetic neuropathy, unspecified; E10.22 Type 1 diabetes mellitus with diabetic chronic kidney disease; D64.9 Anemia, unspecified; Z79.4 Long term (current) use of insulin; Z86.73 Personal history of transient ischemic attack (TIA), and cerebral infarction without residual deficits; Z99.2 Dependence on renal dialysis
CPT/HCPCS: 36415 ×2; 71045; 72070; 72100; 72170; 80053; 80061; 82550 ×2; 83036; 83874; 84484 ×2; 85025; 85610; 86704; 86706; 87340 ×2; 93005 ×2; 96372; 96374; 96375; 99285; G0378 ×17; J1644; J2405; J3490

== ENCOUNTER 2021-06-06 21:43 | Emergency (ER) | payer MEDICARE ==
[~2021-06-06] VITALS: Ht 149.9 cm; Wt 51.7 kg
[~2021-06-06 21:43] MED LIST changes: -ATOR40TA69 PO; +ATOR40TA71 PO; +CARV25TA PO; -CARV25TA77 PO; +CHOL100046 PO; +ESOM20CA39 PO; -FOLI1TAB61 PO; +FOLI1TAB85 PO; +LACT10SO76 PO; +LOSA50TA64 PO; +MELA10CA2 PO; -PANT20TA PO; +PRED10TA3 PO; -PRED20TA3 PO; -RISP0.5T61 PO; +RISP0.5T66 PO; +VITA200C75 PO
[2021-06-07 00:05] VITALS: BP 114/65
[2021-06-07 00:26] LABS: CREATININE 3.9 mg/dL (0.5-1.5); POTASSIUM 3.4 mmol/L (3.5-5.1)
[2021-06-07 00:33] LABS: ALBUMIN 3.3 g/dL (3.5-5.0); BILIRUBIN,TOTAL 0.4 mg/dL (0.2-1.0); TOTAL PROTEIN, SERUM 6.4 g/dL (6.0-8.3)
[2021-06-07 00:34] LABS: HEMATOCRIT 39.9 % (36-48); MEAN CORPUSCULAR HEMOGLOBIN 29.6 pg (27.0-33.0); MEAN CORPUSCULAR HGB CONC 31.3 g/dL (32.0-36.0); MEAN CORPUSCULAR VOLUME 94.3 fL (79-99); RED BLOOD CELL COUNT(AUTO) 4.23 MIL/uL (4.00-5.50); RED CELL DISTRIBUTION WIDTH 16.4 % (11.0-15.5)
[2021-06-07 04:06] VITALS: BP 115/73
== END 2021-06-07 04:19 | disposition home or self-care (01) ==
LOC: EDH 21:43
DX: R53.1 Weakness (principal); I12.0 Hypertensive chronic kidney disease with stage 5 chronic kidney disease or end stage renal disease; N18.6 End stage renal disease; Z79.52 Long term (current) use of systemic steroids; Z99.2 Dependence on renal dialysis; Z79.82 Long term (current) use of aspirin; Z79.899 Other long term (current) drug therapy
CPT/HCPCS: 36415; 70450; 71045; 80053; 82550; 83605; 83690; 83880; 84484; 85027; 87040; 93005

== ENCOUNTER 2022-05-01 14:40 | Emergency (ER) | payer MEDICARE ==
[~2022-05-01] VITALS: Ht 152.4 cm; Wt 54.4 kg
[2022-05-01 23:36] VITALS: BP 172/74
== END 2022-05-02 00:07 ==
LOC: EDH 14:40
DX: S09.90XA Unspecified injury of head, initial encounter (principal); I10 Essential (primary) hypertension; Z79.899 Other long term (current) drug therapy; Z79.82 Long term (current) use of aspirin; W06.XXXA Fall from bed, initial encounter; Y93.89 Activity, other specified; Y92.89 Other specified places as the place of occurrence of the external cause; Y99.8 Other external cause status
CPT/HCPCS: 70450; 72125; 93005